=== PATIENT | female | born 1990 | race Caucasian/White ===

== ENCOUNTER 2019-03-07 23:42 | Inpatient (IN) ==
[2019-03-07] MEDS ORDERED: OXYTOCIN 30 UNITS/500 ML BAG IV PRN (23:57)
[2019-03-07] MEDS ORDERED: LACTATED RINGER'S 1,000 ML IV PRN (23:57)
--- NOTE | 2019-03-08 | History & Physical Report ---
Date of Service March 07, 2019 Primary 40 weeks presents with rupture of membranes at 1015 tonight. She is group B strep negative this is an uncomplicated she had initially been assessed for rupture of membranes a few hours ago but testing was negative then she felt a large gush and a pop and started to contract since then contractions are every 3-4 minutes and 6 out of 10 pain Testing is negative during her normal ultrasound Assessment & Plan (1) Normal labor and delivery: Admission History of Present Illness Primary Care Provider: NO PCP Allergies Allergy/AdvReac Type Severity Reaction Status Date / Time shellfish derived Allergy Nausea Verified 03/07/19 19:41 Home Medications Home Medications Medication Instructions Recorded Confirmed Type PNV cmb#95-ferrous fumarate-FA 1 tab PO DAILY 03/07/19 03/07/19 History [] ferrous sulfate [Iron (ferrous 325 mg PO 3XWK 03/07/19 03/07/19 History sulfate)] Patient History Medical History Palpitations Metoprolol PRN [place] teeth removed age 16 Family History Father Heart disease Social History Preferred Language: Slovenian marital status: Feels Safe at Home: Yes Smoking Status: Never smoker Hx Alcohol Use: No Hx Substance Use: No Physical Exam Physical Exam: Contractions every 3 minutes Chest exam clear Cardiac vascular exam normal rate and rhythm no audible murmur Abdominal exam gravid heart rate tones category 1 Cervix 3 cm 90% -1 membranes clearly ruptured
[2019-03-08 01:05] LABS: Hematocrit (blood only) 38.2 % (37-47); Hemoglobin 12.9 g/dL (12.0-16.0); Mean Corpuscular Volume 92.5 fL (80-100); Mean Platelet Volume 10.6 fL (7.4-10.4); Platelet Count 216 K/uL (130-400); RDW Coefficient of Variation 13.4 % (11.5-14.5); RDW Standard Deviation 45.4 fL (36.4-46.3); Red Blood Count 4.13 M/uL (4.2-5.4); White Blood Count 13.95 K/uL (4.8-10.8)
[2019-03-08 01:09] LABS: Mean Corpuscular Hgb Conc 33.8 g/dL (32-36)
[2019-03-08] MEDS ORDERED: BUPIVACAINE 0.25% 30 ML VIAL ONE (01:20)
[2019-03-08] MEDS ORDERED: ePHEDrine sulfate 50 MG/ML AMP ONE (01:20)
[2019-03-08] MEDS ORDERED: fentaNYL citrate 100 MCG/2 ML VIAL ONE (01:20)
[2019-03-08] MEDS ORDERED: fentaNYL 2MCG/ML ROPIV 1.25MG/ML 100 ML BAG EPI ONE (01:21)
--- NOTE | 2019-03-08 01:34 | Anesthesiology Consultation ---
Date of Service March 08, 2019 Assessment & Plan Chart Review Chart Review: Patient NOT seen in Pre Admission Testing and Acceptable Risk for Labor Epidural Consults Requested none ASA ASA2 Proposed Anesthesia Anesthesia Type: Labor Epidural Risk / Benefits Reviewed With: PT / POA / Parent / Guardian, Accepts Plan and Informed Consent Obtained NPO Date Last Intake of Fluids: 03/08/19 Time Last Intake of Fluids: 01:00 Date Last Intake of Solids: 03/07/19 Time Last Intake of Solids: 17:00 History Height/Weight Height: 1.68 m Weight: 72.348 kg Allergies Allergy/AdvReac Type Severity Reaction Status Date / Time shellfish derived Allergy Nausea Verified 03/07/19 19:41 Medications Home Medications Medication Instructions Recorded Confirmed Last Taken PNV cmb#95-ferrous fumarate-FA 1 tab PO DAILY 03/07/19 03/07/19 03/06/19 21:00 [] ferrous sulfate [Iron (ferrous 325 mg PO 3XWK 03/07/19 03/07/19 03/05/19 21:00 sulfate)] Active Medications Generic Name Dose Route Start Last Admin Trade Name Freq PRN Reason Stop Dose Admin Lactated Ringer's 1,000 mls @ 999 mls/hr 03/07/19 23:57 03/08/19 01:13 Lr IV 04/06/19 23:56 999 mls/hr .Q1H1M PRN Administration (Pre-Anesthesia) Past Medical History Medical History Palpitations Metoprolol PRN Has not had to take the metoprolol. [place] teeth removed age 16 Past Family History Family History Father Heart disease Past Surgical History Surgical History Hx of dilation and curettage 2016 Past Anesthesia History No Hx of Anesthesia Complications and No Family Hx of Anesthesia Complications History of PONV No Motion Sickness Screening History of Motion Sickness: No Social History Smoking Status: Never smoker Do You Dip or Chew Tobacco: No Hx Alcohol Use: No Hx Substance Use: No Exercise / Class Metabolic Activity II 4-5 Yardwork/Stairs/Walk up hill Physical Exam Vital Signs Last Vital Signs Temp 36.6 C 03/08/19 00:03 Pulse 96 H 03/08/19 01:33 Resp 20 03/08/19 00:03 BP 128/75 03/08/19 01:19 Pulse Ox 98 03/08/19 01:33 ENMT Mouth: no TMJ abnormality and no TMJ clicking Thyromental Distance: > or= 3.5 Finger Breadths Mallampati Class: II Neck normal visual inspection; neck extension not limited Respiratory Auscultation: lungs clear to auscultation bilaterally Cardiovascular Rate/Rhythm: regular rate and regular rhythm Heart Sounds: no murmur Psychiatric Orientation: alert and oriented x 3 Testing Laboratory Results 03/08/19 00:06
[2019-03-08] MEDS ORDERED: NALOXONE HCL 1 MG in SODIUM CHLORIDE 0.9% 1000ML 1,000 ML IV PRN (02:06)
[2019-03-08] MEDS ORDERED: ONDANSETRON INJ 2 MG/ML 2 ML VIAL IV PRN (02:06)
[2019-03-08] MEDS ORDERED: NALBUPHINE HCL INJ 10 MG/ML AMP IV PRN (02:06)
[2019-03-08] MEDS ORDERED: PROMETHAZINE HCL 12.5 MG in SODIUM CHLORIDE 0.9% 50 ML IV PRN (02:06)
[2019-03-08] MEDS ORDERED: fentaNYL 2MCG/ML ROPIV 1.25MG/ML 100 ML BAG EPI PRN (02:06)
[2019-03-08] MEDS ORDERED: LACTATED RINGER'S 1,000 ML IV PRN (02:06)
[2019-03-08] MEDS ORDERED: NALOXONE HCL 0.4 MG/1 ML VIAL/CARP IV PRN (02:06)
[2019-03-08] MEDS ORDERED: ePHEDrine sulfate 50 MG/ML AMP IV PRN (02:06)
[2019-03-08] MEDS ORDERED: DiphenhydrAMINE HCL 50 MG/ML VIAL IV PRN (02:06)
[2019-03-08] MEDS: LACTATED RINGER'S 1,000 ML IV SCH ×2 (02:15→08:57)
--- NOTE | 2019-03-08 07:07 | Obstetrical Progress Note ---
Date of Service March 08, 2019 Patient is 9 cm 0 station she has progressed nicely from 3 cm she has epidural heart rate is category 1 Physical Exam Vital Signs (Past 24 Hours): Last Vital Signs Temp 37.0 C 03/08/19 06:10 Pulse 127 H 03/08/19 07:01 Resp 16 03/08/19 06:10 BP 112/63 03/08/19 07:00 Pulse Ox 97 03/08/19 07:01
--- NOTE | 2019-03-08 09:15 | Labor Progress Brief Note ---
Date of Service March 08, 2019 Subjective pressure with contractions, now pushing. Assessment & Plan (1) Normal labor and delivery: Begin second stage. anticipate . fetus reassuring, category 2. Physical Exam Vital Signs (Past 24 Hours): Last Vital Signs Temp 37.0 C 03/08/19 06:10 Pulse 108 H 03/08/19 09:13 Resp 16 03/08/19 06:10 BP 149/52 H 03/08/19 09:13 Pulse Ox 97 03/08/19 09:11 Constitutional: WD/WN, vitals as above Genitourinary: cx--c/c/+1-2 toco--q2-3min efm--130s with mod variability, accels present, variables with pushing
--- NOTE | 2019-03-08 10:25 | Labor Progress Brief Note ---
Date of Service March 08, 2019 Subjective Pushing with good effort Assessment & Plan (1) Normal labor and delivery: Pushing with good effort for about 1 hr 15 min. Fetus reassuring. Continue and anticipate . Physical Exam Vital Signs (Past 24 Hours): Last Vital Signs Temp 37.5 C 03/08/19 09:30 Pulse 111 H 03/08/19 10:21 Resp 16 03/08/19 06:10 BP 120/58 L 03/08/19 09:58 Pulse Ox 96 03/08/19 10:21 Constitutional: WD/WN, vitals as above Genitourinary: cx--c/c/+2 toco--q2-3 min efm--150s with mod variability, variables with contractions
[2019-03-08] MEDS ORDERED: ACETAMINOPHEN 325 MG TAB PO PRN (12:24)
[2019-03-08] MEDS ORDERED: OXYCODONE/ACETAMINOPHEN 5mg/325mg TAB PO PRN (12:24)
--- NOTE | 2019-03-08 13:08 | Anesthesia Procedure Note ---
Date of Service March 08, 2019 Anesthesia Post Epidural Note Vital Signs Vital Signs: Temp Pulse Resp BP Pulse Ox 37.5 C 100 H 20 135/69 100 03/08/19 09:30 03/08/19 12:44 03/08/19 12:44 03/08/19 12:44 03/08/19 12:21 Pain Intensity Lower Perineal: Pain Intensity: 0 Notes Mental Status: alert / awake / arousable and participated in evaluation Nausea / Vomiting: adequately controlled Pain: adequately controlled Airway Patency, RR, SpO2: stable & adequate BP & HR: stable & adequate Hydration State: stable & adequate Neuraxial Anesthesia: was administered and sensory block is resolving Anesthetic Complications: no major complications apparent and Pt Satisfied with anesthetic care Epidural: Removed without complications and With tip intact
[2019-03-08] MEDS ORDERED: BENZOCAINE 20% AER SPR 82.5 GM CAN EXT PRN (13:24)
[2019-03-08] MEDS ORDERED: OXYTOCIN 30 UNITS/500 ML BAG IV PRN (13:24)
[2019-03-08] MEDS ORDERED: SUPERCREAM 0.870% 15 GM JAR EXT PRN (13:24)
[2019-03-08] MEDS ORDERED: DIPHTHERIA/TETANUS/PERTUSSIS 0.5 ML SYR/VIAL IM ONE (13:24)
[2019-03-08] MEDS ORDERED: HYDROCORTISONE ACETATE 25 MG SUPP PR PRN (13:24)
[2019-03-08] MEDS ORDERED: BENZOCAINE 20% AER SPR 82.5 GM CAN EXT ONE (14:11)
--- NOTE | 2019-03-08 15:37 | Delivery Summary ---
DATE OF OPERATION: 03/08/2019 PREOPERATIVE DIAGNOSES: 1. Intrauterine at 40 and 2/7 weeks. 2. Active labor. POSTOPERATIVE DIAGNOSES: 1. Intrauterine at 40 and 2/7 weeks. 2. Active labor. PROCEDURES: 1. Epidural anesthesia. 2. Normal spontaneous vaginal delivery. 3. Second-degree perineal laceration with repair. SURGEON: Vania Sprague MD ANESTHESIA: Epidural. ESTIMATED BLOOD LOSS: 475 mL. DESCRIPTION OF PROCEDURE: The patient presented to labor and delivery in active labor. She was admitted with ruptured membranes. Her cervix was 3, 90, and -1. She was admitted and expectantly managed. She underwent an epidural anesthetic and progressed to 9 and 0 station with a category 1 strip. This is when I took over for the patient in the morning. She did eventually become complete-complete and +1 to +2 station. The patient pushed for 3 hours to deliver a viable male in JORGE L presentation. The nose and mouth were bulb suctioned. There was no nuchal cord. The rest of the was then delivered without difficulty. The was placed on maternal abdomen where the nose and mouth were bulb suctioned again. There was immediate cry upon delivery. Cord was clamped and cut at 1 minute of life. Cord blood and segment was obtained. The placenta was manually extracted secondary to heavy bleeding. Hemostasis was obtained of the uterus with dilute Pitocin and fundal massage. A complicated second-degree perineal laceration was identified. Rectal exam showed the rectal sphincter was intact. This was repaired. It was a stellate vaginal part of the second-degree laceration, repair started on the right coming to the introitus, then on the left, coming into the introitus, then a separate suture was used on the perineal body to reapproximate it to close the perineum. Cervix, sulci, and rectum were examined and found to be intact. Estimated blood loss was 475 mL. Apgars were 8 and 9. Mother and baby doing well at the end of the delivery. I attest to the content of the Intraoperative Record and any orders documented therein. Any exception s are noted below.
[2019-03-08] MEDS: DOCUSATE SODIUM 100 MG CAP PO SCH (19:53)
[2019-03-08] MEDS: IBUPROFEN 600 MG TAB PO PRN (19:54)
[2019-03-09] MEDS: IBUPROFEN 600 MG TAB PO PRN ×4 (02:59→21:09)
[2019-03-09 06:13] LABS: Hematocrit (blood only) 30.2 % (37-47); Hemoglobin 10.1 g/dL (12.0-16.0)
--- NOTE | 2019-03-09 06:56 | Obstetrical Progress Note ---
Date of Service <Sriram Meza DO - Last Filed: 03/09/19 06:56> March 09, 2019 Assessment & Plan <Sriram Meza DO - Last Filed: 03/09/19 06:56> (1) Spontaneous vaginal delivery: 28 y/o, , at 40.2 weeks, A+, GBS(-) - continue routine post- care, encourage and ambulation. (2) Normal labor and delivery: Subjective <Sriram Meza - Last Filed: 03/09/19 06:56> Ambulation: ambulating normally Voiding: no voiding problems Passing Gas:: Yes Diet Tolerance:: regular diet Lochia:: Small Feeding Type:: breast feeding Mary states she is doing well this morning, no acute events overnight. She denies fever, chills, shortness of breath, chest pain, nausea, vomiting. Physical Exam <Sriram Meza - Last Filed: 03/09/19 06:56> Vital Signs (Past 24 Hours) Last Vital Signs Temp 36.5 C 03/09/19 03:00 Pulse 81 03/09/19 03:00 Resp 18 03/09/19 03:00 BP 102/59 L 03/09/19 03:00 Pulse Ox 97 03/08/19 23:15 Constitutional WD/WN, vitals as above cooperative and comfortable Eyes + anicteric sclerae and EOM intact bilaterally Neck normal visual inspection and trachea midline Respiratory normal respiratory effort, lungs clear to auscultation Cardiovascular RRR, no murmur, no edema Gastrointestinal (Abdomen) Percussion/Palpation: abdomen nontender uterine fundus is non-tender, firm, 2cm inferior to umbilicus Musculoskeletal Head/Neck/Chest: normocephalic and head atraumatic Skin no rashes, warm and dry Neurologic moves all extremities and awake Psychiatric A+Ox3, euthymic affect Results & Data <Sriram Meza - Last Filed: 03/09/19 06:56> Laboratory Results Laboratory Results - last 24 hr 03/09/19 05:48 Hgb 10.1 L Hct 30.2 L Medications Administered Benzocaine (Dermoplast Pain Relieving [place]) 1 appln EXT PRN PRN PRN Reason: Perineal Discomfort Stop: 04/07/19 13:23 Last Admin: 03/08/19 19:54 Dose: 82.5 appln Documented by: [id number] Cocaine HCl (Supercream 0.870%) 1 gm EXT BID PRN PRN Reason: Hemorrhoidal Inflammation Stop: 03/22/19 13:23 Last Admin: 03/08/19 19:53 Dose: 1 appln Documented by: [id number] Docusate Sodium (Colace) 100 mg PO BID NOAH Stop: 04/07/19 20:59 Last Admin: 03/08/19 19:53 Dose: 100 mg Documented by: [id number] Ibuprofen (Motrin) 600 mg PO Q4H PRN PRN Reason: Pain/HARDY/Cramping/Fever Stop: 04/07/19 12:23 Last Admin: 03/09/19 02:59 Dose: 600 mg Documented by: [id number] Admin: 03/08/19 19:54 Dose: 600 mg Documented by: [id number] <Vania Sprague MD, FACOG - Last Filed: 03/09/19 08:00> Co-Signing Physician Notes Resident Physician Supervision Note: I interviewed and examined the patient. Discussed with Dr. Meza and agree with findings and plan as documented in the note. Any exceptions or clarifications are listed here: Doing well. Routine PP care. Documented By: Vania Sprague MD, FACOG
[2019-03-09] MEDS: DOCUSATE SODIUM 100 MG CAP PO SCH ×2 (08:43→21:08)
[2019-03-09] MEDS: PRENATAL VITAMIN 1 TAB PO SCH (08:43)
[2019-03-09] MEDS ORDERED: BISACODYL 5 MG TABEC PO SCH (20:00)
[2019-03-10] MEDS: IBUPROFEN 600 MG TAB PO PRN ×2 (05:47→09:38)
[2019-03-10] MEDS ORDERED: BISACODYL 10 MG SUPP PR PRN (06:00)
--- NOTE | 2019-03-10 07:01 | Obstetrical Progress Note ---
Date of Service <Sriram Meza DO - Last Filed: 03/10/19 07:13> March 10, 2019 Assessment & Plan <Sriram Meza DO - Last Filed: 03/10/19 07:13> (1) Spontaneous vaginal delivery: 28 y/o, , at 40.2 weeks, A+, GBS(-) - continue routine post- care, encourage and ambulation. - discharge instructions reviewed at bedside Subjective <Sriram Meza DO - Last Filed: 03/10/19 07:13> Ambulation: ambulating normally Voiding: no voiding problems Passing Gas:: Yes Diet Tolerance:: regular diet Lochia:: Small Feeding Type:: breast feeding Mary states she is doing well this morning, no acute events overnight. She denies fever, chills, chest pain, shortness of breath, nausea, vomiting. She states she is ready for discharge home today. Physical Exam <Sriram Meza DO - Last Filed: 03/10/19 07:13> Vital Signs (Past 24 Hours) Last Vital Signs Temp 36.4 C L 03/10/19 00:15 Pulse 72 03/10/19 00:15 Resp 18 03/10/19 00:15 BP 107/70 03/10/19 00:15 Pulse Ox 97 03/08/19 23:15 Constitutional WD/WN, vitals as above cooperative and comfortable Eyes + anicteric sclerae and EOM intact bilaterally Neck normal visual inspection and trachea midline Respiratory normal respiratory effort, lungs clear to auscultation Cardiovascular RRR, no murmur, no edema Gastrointestinal (Abdomen) Percussion/Palpation: abdomen nontender uterine fundus is firm, non-tender, 3cm inferior to umbilicus Musculoskeletal Head/Neck/Chest: normocephalic and head atraumatic Skin no rashes, warm and dry Neurologic moves all extremities and awake Psychiatric A+Ox3, euthymic affect Results & Data <Sriram Meza DO - Last Filed: 03/10/19 07:13> Medications Administered Benzocaine (Dermoplast Pain Relieving [place]) 1 appln EXT PRN PRN PRN Reason: Perineal Discomfort Stop: 04/07/19 13:23 Last Admin: 03/08/19 19:54 Dose: 82.5 appln Documented by: [id number] Cocaine HCl (Supercream 0.870%) 1 gm EXT BID PRN PRN Reason: Hemorrhoidal Inflammation Stop: 03/22/19 13:23 Last Admin: 03/08/19 19:53 Dose: 1 appln Documented by: [id number] Docusate Sodium (Colace) 100 mg PO BID [facility] Stop: 04/07/19 20:59 Last Admin: 03/09/19 21:08 Dose: 100 mg Documented by: [id number] Admin: 03/09/19 08:43 Dose: 100 mg Documented by: [id number] Admin: 03/08/19 19:53 Dose: 100 mg Documented by: [id number] Ibuprofen (Motrin) 600 mg PO Q4H PRN PRN Reason: Pain/HARDY/Cramping/Fever Stop: 04/07/19 12:23 Last Admin: 03/10/19 05:47 Dose: 600 mg Documented by: [id number] Admin: 03/09/19 21:09 Dose: 600 mg Documented by: [id number] Admin: 03/09/19 13:49 Dose: 600 mg Documented by: [id number] Admin: 03/09/19 08:43 Dose: 600 mg Documented by: [id number] Admin: 03/09/19 02:59 Dose: 600 mg Documented by: [id number] Admin: 03/08/19 19:54 Dose: 600 mg Documented by: [id number] Prenat Multivit/[place]/Iron/Folic Ac ( Vitamin) 1 tab PO QAM [facility] Stop: 04/08/19 08:59 Last Admin: 03/09/19 08:43 Dose: 1 tab Documented by: [id number] <Archana Spaulding MD, FACOG - Last Filed: 03/10/19 07:32> Co-Signing Physician Notes Resident Physician Supervision Note: I interviewed and examined the patient. Discussed with Dr. Jumana Meza and agree with findings and plan as documented in the note. Any exceptions or clarifications are listed here: [None] Documented By: Archana Spaulding MD, FACOG
[2019-03-10] MEDS: PRENATAL VITAMIN 1 TAB PO SCH (08:44)
[2019-03-10] MEDS: DOCUSATE SODIUM 100 MG CAP PO SCH (08:44)
== END 2019-03-10 13:18 | disposition home or self-care (01) | DRG 807 ==
LOC: OPB 23:42 → 4S1 23:43 → 4S2 03-08 15:25

== ENCOUNTER 2023-05-04 07:30 | Inpatient (IN) ==
[2023-05-04] MEDS ORDERED: OXYTOCIN 30 UNITS/500 ML BAG IV PRN ×3 (07:43→17:01)
[2023-05-04] MEDS ORDERED: LIDOCAINE 1% LOCAL 20 ML VIAL INFIL PRN (07:43)
--- NOTE | 2023-05-04 08:11 | History & Physical Report ---
Date of Service May 04, 2023 Assessment & Plan (1) Encounter for induction of labor: (2) History of macrosomia in in prior , currently : Plan admit, iv, labs. plan pitocin induction and arom when able. epidural if desires. fhts categ 1. Admission and Anticipated Discharge Date Admission Date: May 04, 2023 History of Present Illness Chief Complaint: induction Primary Care Provider: Valeria PromiseShakira Borden 32yo at 40+wks presents with cc of planned induction, postdates. Denies rom, vb. +FM. No ctx. 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 prior LGA PNL rh pos, ri, gbs neg OBH: x 1, 9+#, sab x 1 GYNH: nl paps, no stds. Allergies Allergy/AdvReac Type Severity Reaction Status Date / Time shellfish derived Allergy Nausea Verified 05/01/23 09:41 Home Medications Medication Instructions Recorded Confirmed Type prenat.vits,дмитрий,mnv-satg-etmor 1 tab PO DAILY 09/10/22 05/04/23 History Patient History Medical History (Updated 05/04/23 @ 08:10 by Maria E Mukherjee MD, FACOG) Abnormal magnetic resonance angiography of brain Brain angiogram to get picture of brain 2007. History of chicken pox Surgical History Hx of dilation and curettage 2017 S/P cholecystectomy [place] teeth removed age 16 Family History Father Heart disease Denies family history of Ovarian cancer Prostate cancer Breast cancer Colorectal cancer Social History (Updated 09/10/22 @ 10:52 by Monica Hodges) Smoking Status: Never smoker Do You Dip or Chew Tobacco: No; Hx Alcohol Use: No Hx Substance Use: No Preferred Language: Cuban Communication Ability: Effective Concrete Sculptor Required: No Beliefs That Will Affect Care: None marital status: marital status details: Amarjit Robert (27) [phone] Current Living Situation: Spouse and Family Current Living Situation Comment: lives iwth spouse, child, no pets current occupational status: employed 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 Feels Safe at Home: Yes Assistive Devices: None Review of Systems as per Subjective / HPI Physical Exam Constitutional: WD/WN, vitals as above Respiratory: normal respiratory effort, lungs clear to auscultation Cardiovascular: Rate/Rhythm: regular rate and regular rhythm Gastrointestinal (Abdomen): soft gravid nt efw 8-9# Musculoskeletal: no edema nontender calves Neurologic: grossly normal Psychiatric: A+Ox3, euthymic affect Genitourinary: Manual OB Exam: + cervical dilation 3 cm, + cervical effacement 70% and + station -2 OB Exam Monitor Tracing: + external FHT monitor used, + external uterine monitor used (irreg), + category I and + normal FHT variability Results & Data Vital Signs (Past 12 Hours) Vital Signs Pulse BP 05/04/23 07:42 86 115/73 Coding Level of Care Code None Diagnoses Encounter for induction of labor Z34.90 History of macrosomia in infant in prior , currently O09.299
[2023-05-04] MEDS: LACTATED RINGER'S 1,000 ML IV PRN ×2 (08:35→14:56)
[2023-05-04 08:44] LABS: Hematocrit (blood only) 37.8 % (37.0-47.0); Hemoglobin 12.6 g/dl (12.0-16.0); Mean Corpuscular Hemoglobin 31.7 pg (25.0-34.0); Mean Corpuscular Hgb Conc 33.3 g/dL (32.0-36.0); Mean Corpuscular Volume 95.2 fL (80.0-100.0); Mean Platelet Volume 10.7 fL (9.4-12.4); Platelet Count 187 K/uL (130-400); RDW Coefficient of Variation 12.7 % (11.5-14.5); RDW Standard Deviation 44.5 fL (36.4-46.3); Red Blood Count 3.97 M/uL (4.20-5.40); White Blood Count 11.75 K/ul (4.8-10.8)
[2023-05-04] MEDS ORDERED: fentaNYL citrate PF 100 MCG/2 ML VIAL ONE (14:49)
[2023-05-04] MEDS ORDERED: ePHEDrine sulfate 50 MG/ML AMP ONE (14:49)
[2023-05-04] MEDS ORDERED: SODIUM CHLORIDE 0.9% PF INJ 10 ML VIAL ONE (14:49)
[2023-05-04] MEDS ORDERED: LIDOCAINE 2%/EPINEPHRINE 1:200,000 20 ML PF ONE (14:50)
[2023-05-04] MEDS ORDERED: BUPIVACAINE 0.25% PF 30 ML VIAL ONE (14:50)
[2023-05-04] MEDS ORDERED: fentaNYL 2MCG/ML ROPIVACAINE 1.25MG/ML 100 ML BAG EPI ONE (14:50)
[2023-05-04] MEDS ORDERED: fentaNYL citrate PF 100 MCG/2 ML VIAL EPI PRN (15:40)
[2023-05-04] MEDS ORDERED: PROMETHAZINE HCL 6.25 MG in SODIUM CHLORIDE 0.9% 50 ML IV PRN (15:40)
[2023-05-04] MEDS ORDERED: ePHEDrine sulfate 50 MG/ML AMP IV PRN (15:40)
[2023-05-04] MEDS ORDERED: ONDANSETRON INJ 2 MG/ML 2 ML VIAL IV PRN (15:40)
[2023-05-04] MEDS ORDERED: LIDOCAINE 2%/EPINEPHRINE 1:200,000 20 ML PF EPI STA (15:40)
[2023-05-04] MEDS ORDERED: BUPIVACAINE 0.25% PF 30 ML VIAL EPI PRN (15:40)
[2023-05-04] MEDS ORDERED: NALOXONE HCL 1 MG in SODIUM CHLORIDE 0.9% 1000ML 1,000 ML IV PRN (15:40)
[2023-05-04] MEDS ORDERED: ROPIVACAINE 0.5% PF 5 MG/ML 20 ML VIAL EPI PRN (15:40)
[2023-05-04] MEDS ORDERED: fentaNYL 2MCG/ML ROPIVACAINE 1.25MG/ML 100 ML BAG EPI PRN (15:40)
[2023-05-04] MEDS ORDERED: diphenhydrAMINE 50 MG/ML VIAL IV PRN (15:40)
[2023-05-04] MEDS ORDERED: SODIUM CHLORIDE 0.9% PF INJ 10 ML VIAL EPI STA (15:40)
[2023-05-04] MEDS ORDERED: NALBUPHINE HCL INJ 10 MG/ML AMP IV PRN (15:40)
[2023-05-04] MEDS ORDERED: LIDOCAINE 2% MPF LOCAL 5 ML VIAL EPI PRN (15:40)
[2023-05-04] MEDS ORDERED: SODIUM CHLORIDE 0.9% PF INJ 10 ML VIAL EPI PRN (15:40)
[2023-05-04] MEDS ORDERED: fentaNYL citrate PF 100 MCG/2 ML VIAL EPI STA (15:40)
[2023-05-04] MEDS ORDERED: NALOXONE HCL 0.4 MG/1 ML VIAL/CARP IV PRN (15:40)
[2023-05-04] MEDS ORDERED: BUPIVACAINE 0.25% PF 30 ML VIAL EPI STA (15:40)
--- NOTE | 2023-05-04 15:40 | Anesthesiology Consultation ---
Date of Service May 04, 2023 Assessment & Plan Chart Review Chart Review: Patient NOT seen in Pre Admission Testing and Acceptable Risk for Labor Epidural Consults Requested none ASA ASA2 Proposed Anesthesia Anesthesia Type: Labor Epidural Risk / Benefits Reviewed With: PT / POA / Parent / Guardian, Accepts Plan and Informed Consent Obtained History Height/Weight Height: 5 ft 6 in Weight: 73.457 kg Allergies Allergy/AdvReac Type Severity Reaction Status Date / Time shellfish derived Allergy Nausea Verified 05/01/23 09:41 Medications Home Medications Medication Instructions Recorded Confirmed Last Taken prenat.vits,дмитрий,toc-dahe-yhucb 1 tab PO DAILY 09/10/22 05/04/23 05/03/23 21:00 Active Medications Generic Name Dose Route Start Last Admin Trade Name Freq PRN Reason Stop Dose Admin Oxytocin 30 units in 500 mls @ 15 mls/hr 05/04/23 07:43 05/04/23 13:45 Pitocin IV 05/06/23 07:42 0.9 units/hr .Q24H PRN 15 mls/hr Labor Induction/Augmentation Titration Protocol 0.9 UNITS/HR Lactated Ringer's 1,000 mls @ 125 mls/hr 05/04/23 07:43 05/04/23 14:56 Lr IV 05/06/23 07:42 999 mls/hr .Q8H PRN Administration L&D Protocol Protocol Past Medical History Medical History (Updated 05/04/23 @ 08:10 by Maria E Mukherjee MD, FACOG) Abnormal magnetic resonance angiography of brain Brain angiogram to get picture of brain 2007. History of chicken pox Exercise / Class Metabolic Activity II 4-5 Yardwork/Stairs/Walk up hill Past Family History Family History Father Heart disease Denies family history of Ovarian cancer Prostate cancer Breast cancer Colorectal cancer Past Surgical History Surgical History Hx of dilation and curettage 2017 S/P cholecystectomy [place] teeth removed age 16 Past Anesthesia History No Hx of Anesthesia Complications and No Family Hx of Anesthesia Complications History of PONV No Hx of PONV and No Hx of Motion Sickness Social History Smoking Status: Never smoker Do You Dip or Chew Tobacco: No Hx Alcohol Use: No Hx Substance Use: No substance use type: does not use Physical Exam Vital Signs Last Vital Signs Temp 36.7 C 05/04/23 07:41 Pulse 65 05/04/23 15:38 Resp 18 05/04/23 08:00 BP 120/71 05/04/23 15:38 Pulse Ox 97 05/04/23 15:37 ENMT Mouth: no dentition abnormality Thyromental Distance: > or= 3.5 Finger Breadths Mallampati Class: II Neck normal visual inspection Respiratory normal respiratory effort Auscultation: lungs clear to auscultation bilaterally Cardiovascular Rate/Rhythm: regular rate and regular rhythm Psychiatric Orientation: alert Testing Laboratory Results 05/04/23 08:07
[2023-05-04] MEDS ORDERED: NURSING L&D Epidural Breakthrough Pain Update ONE (15:52)
[2023-05-04] MEDS ORDERED: DIPHTHERIA/TETANUS/PERTUSSIS Vaccine (Tdap, Age 7+yrs) 0.5mL SYR/VL IM ONE (17:01)
[2023-05-04] MEDS ORDERED: bisacodyL 10 MG SUPP PR PRN (17:01)
[2023-05-04] MEDS ORDERED: BENZOCAINE 20% AER SPR 82.5 GM CAN EXT PRN (17:01)
[2023-05-04] MEDS ORDERED: HYDROCORTISONE ACETATE 25 MG SUPP PR PRN (17:01)
[2023-05-04] MEDS ORDERED: ACETAMINOPHEN 325 MG TAB PO PRN (17:01)
--- NOTE | 2023-05-04 17:04 | Delivery Summary ---
Vaginal Delivery Summary Date of Service May 04, 2023 Vaginal Delivery Summary and 2nd Degree LAC PREOPERATIVE DIAGNOSIS: 1. Single intrauterine at 40 6/7 wga 2. right club food POSTOPERATIVE DIAGNOSIS: 1. Single intrauterine at 40 6/7 wga 2. right club food 3. Delivered PROCEDURE: 1. Normal spontaneous vaginal delivery. SURGEON: Laney Hoover MD ANESTHESIA: Epidural. ESTIMATED BLOOD LOSS: 300 mL FLUIDS: Continuous LR. URINE OUTPUT: None. COMPLICATIONS: None. CONDITION: Stable. INDICATIONS: 32 yo at 40 6/7 presented for post-dates IOL. She was started on pitocin. She received an epidural for pain control and shortly after underwent SROM. Shortly after SROM she continued to have pain, was checked and found to be complete and desiring to push. FINDINGS: A viable male , weight pending with Apgars of 8 and 9 at 1 and 5 minutes respectively. SPECIMEN: Cord blood OPERATIVE REPORT: The patient progressed to 10 cm, 100% effaced and +2 station, pushed over intact perineum with anesthesia to deliver a viable male infant, weight and Apgars as above. Head of delivered in JORGE L position. No nuchal cord was present. Body and shoulders were delivered without difficulty. was delivered to maternal abdomen and nursing staff. Delayed cord clamping was performed for 60 seconds. Cord was clamped and cut. Cord blood was obtained. Placenta delivered spontaneously intact with 3-vessel cord. IV oxytocin and fundal massage were given for excellent hemostasis. Vagina, cervix, perineum, and placenta were inspected. A second degree laceration was noted and repaired in the usual fashion with 3-0 vicryl. An additional area on the pt's right vaginal wall was noted to be bleeding and made hemostatic with a figure of eight stitch. There was good hemostasis. Sponge and needle counts correct x2. No spon ges were left behind. Mother and stable in immediate period. [facility] Vaginal Delivery Charge Vaginal Delivery Codes: 30921 global code for the antepartum, delivery, and post- Delivery Type Details: and 2nd Degree LAC
--- NOTE | 2023-05-04 17:15 | Anesthesia Procedure Note ---
Date of Service May 04, 2023 Anesthesia Post Epidural Note Vital Signs Vital Signs: Temp Pulse Resp BP Pulse Ox 36.7 C 83 18 120/64 99 05/04/23 07:41 05/04/23 17:07 05/04/23 08:00 05/04/23 17:05 05/04/23 17:07 Pain Intensity Left Hip: Pain Intensity: 10 Notes Mental Status: alert / awake / arousable Nausea / Vomiting: adequately controlled Pain: adequately controlled Airway Patency, RR, SpO2: stable & adequate BP & HR: stable & adequate Hydration State: stable & adequate Neuraxial Anesthesia: was administered and sensory block is resolving Anesthetic Complications: no major complications apparent and Pt Satisfied with anesthetic care Epidural: Removed without complications and With tip intact
[2023-05-04] MEDS: DOCUSATE SODIUM 100 MG CAP PO SCH (21:39)
[2023-05-04] MEDS: IBUPROFEN 600 MG TAB PO PRN (21:40)
[2023-05-05 06:31] LABS: Hematocrit (blood only) 33.1 % (37.0-47.0); Hemoglobin 11.1 g/dl (12.0-16.0); Mean Corpuscular Hemoglobin 31.6 pg (25.0-34.0); Mean Corpuscular Hgb Conc 33.5 g/dL (32.0-36.0); Mean Corpuscular Volume 94.3 fL (80.0-100.0); Mean Platelet Volume 10.7 fL (9.4-12.4); Platelet Count 169 K/uL (130-400); RDW Coefficient of Variation 12.8 % (11.5-14.5); RDW Standard Deviation 44.1 fL (36.4-46.3); Red Blood Count 3.51 M/uL (4.20-5.40); White Blood Count 18.58 K/ul (4.8-10.8)
--- NOTE | 2023-05-05 06:49 | Obstetrical Progress Note ---
Date of Service <Per Fox - Last Filed: 05/05/23 06:49> May 05, 2023 Assessment & Plan <Per Fox - Last Filed: 05/05/23 06:49> (1) Vaginal delivery: Plan - Feels well today. Eating well, voiding well, ambulating well. - Pain well controlled with ibuprofen 600mg Q4H PRN - Routine care -- OOB, ambulation, diet progression as tolerated - After discharge will have 6 week follow-up with Dr. Hoover Day #:: 1 <Laney Hoover MD - Last Filed: 05/05/23 06:53> (1) Vaginal delivery: Subjective <Per Fox - Last Filed: 05/05/23 06:49> Ambulation: ambulating normally Voiding: no voiding problems Passing Gas:: Yes Diet Tolerance:: regular diet Lochia:: Small Feeding Type:: bottle feeding Current Pain Level(1-10): 4 Review of Systems Denies fever, chills, sweats Denies shortness of breath, difficulty breathing, chest pain, palpitations, chest pressure. Denies breast pain. Denies dysuria. Denies headache or changes in vision. Physical Exam <Per Fox - Last Filed: 05/05/23 06:49> General: Alert, oriented. No acute distress. Cardiac: Regular rate and rhythm, no murmurs/rubs/gallops. Respiratory: Clear to auscultation bilaterally a/p, no wheezes/rales/rhonchi. No increased work of breathing. Symmetrical chest rise. No respiratory distress. Abdomen: Soft, nontender, nondistended. Bowel sounds present. Uterus: Uterine fundus firm, palpable 1 cm below umbilicus. Lower Extremities: No lower extremity edema or swelling. No deep calf pain. Betsy's negative bilaterally. Results & Data <Per Fox - Last Filed: 05/05/23 06:49> Vital Signs (Past 12 Hours) Vital Signs Temp Pulse Resp BP Pulse Ox O2 Del Method 05/05/23 04:45 36.5 C 76 16 106/69 98 Room Air 05/04/23 23:00 36.7 C 76 16 123/75 96 Room Air 05/04/23 20:00 36.6 C 90 16 117/79 97 Room Air <Laney Hoover MD - Last Filed: 05/05/23 06:53> Co-Signing Physician Notes Resident Physician Supervision Note: I interviewed and examined the patient. Discussed with Dr. Fox and agree with findings and plan as documented in the note. Any exceptions or clarifications are listed here: 32 yo PP1 s/p , doing well. VSS, exam benign and wnl. Desires dc at 24 hrs, ok to do so Documented By: Laney Hoover MD Resident Activity Tracking <Per Fox DO - Last Filed: 05/05/23 06:49> Resident Involvement: Resident Care Provided Care Provided: OB Delivery
[2023-05-05] MEDS: IBUPROFEN 600 MG TAB PO PRN (07:47)
[2023-05-05] MEDS: DOCUSATE SODIUM 100 MG CAP PO SCH (07:47)
[2023-05-05] MEDS ORDERED: PRENATAL VITAMIN 1 TAB PO SCH (08:00)
[2023-05-05] MEDS ORDERED: bisacodyL 5 MG TABEC PO SCH (20:00)
== END 2023-05-05 17:46 | disposition home or self-care (01) | DRG 807 ==
LOC: 4S1 07:30 → 4E2 19:16

== ENCOUNTER 2025-02-08 07:27 | Inpatient (IN) ==
[2025-02-08] MEDS ORDERED: OXYTOCIN 30 UNITS/NSS 30 UNITS/500 ML BAG IV PRN ×2 (08:27→15:23)
[2025-02-08] MEDS ORDERED: LIDOCAINE 1% LOCAL 20 ML VIAL INFIL PRN (08:27)
[2025-02-08] MEDS ORDERED: ACETAMINOPHEN 325 MG TAB PO PRN ×2 (08:27→15:23)
[2025-02-08] MEDS ORDERED: CALCIUM CARBONATE 500 MG CHEWABLE TAB PO PRN (08:27)
[2025-02-08] MEDS: LACTATED RINGER'S 1,000 ML IV PRN (08:35)
[2025-02-08 09:10] LABS: Hematocrit (blood only) 35.1 % (37.0-47.0); Hemoglobin 11.7 g/dl (12.0-16.0); Mean Corpuscular Hemoglobin 30.9 pg (25.0-34.0); Mean Corpuscular Hgb Conc 33.3 g/dL (32.0-36.0); Mean Corpuscular Volume 92.6 fL (80.0-100.0); Mean Platelet Volume 10.7 fL (9.4-12.4); Platelet Count 156 K/uL (130-400); RDW Standard Deviation 47.7 fL (36.4-46.3); Red Blood Count 3.79 M/uL (4.20-5.40); White Blood Count 8.78 K/ul (4.8-10.8)
[2025-02-08] MEDS: OXYTOCIN 30 UNITS/NSS 30 UNITS/500 ML BAG IV PRN (09:13)
[2025-02-08] MEDS ORDERED: SODIUM CHLORIDE 0.9% PF INJ 10 ML VIAL EPI STA (12:17)
[2025-02-08] MEDS ORDERED: ePHEDrine sulfate 50 MG/ML AMP IV PRN (12:17)
[2025-02-08] MEDS ORDERED: BUPIVACAINE 0.25% PF 30 ML VIAL EPI PRN (12:17)
[2025-02-08] MEDS ORDERED: SODIUM CHLORIDE 0.9% PF INJ 10 ML VIAL EPI PRN (12:17)
[2025-02-08] MEDS ORDERED: LIDOCAINE 2% MPF LOCAL 5 ML VIAL EPI PRN (12:17)
[2025-02-08] MEDS ORDERED: diphenhydrAMINE 50 MG/ML VIAL IV PRN (12:17)
[2025-02-08] MEDS ORDERED: NALBUPHINE HCL INJ 10 MG/ML AMP IV PRN (12:17)
[2025-02-08] MEDS ORDERED: ROPIVACAINE 0.5% PF 5 MG/ML 20 ML VIAL EPI PRN (12:17)
[2025-02-08] MEDS ORDERED: BUPIVACAINE 0.25% PF 30 ML VIAL EPI STA (12:17)
[2025-02-08] MEDS ORDERED: fentANYL 2 MCG/ML BUPIVacaine 0.125%-NSS 100ML BAG EPI PRN (12:17)
[2025-02-08] MEDS ORDERED: NALOXONE HCL 0.4 MG/1 ML VIAL/CARP IV PRN (12:17)
[2025-02-08] MEDS ORDERED: LIDOCAINE 2%/EPINEPHRINE 1:200,000 20 ML PF EPI STA (12:17)
[2025-02-08] MEDS ORDERED: NALOXONE HCL 1 MG in SODIUM CHLORIDE 0.9% 1,000 ML IV PRN (12:17)
[2025-02-08] MEDS ORDERED: fentaNYL citrate PF 100 MCG/2 ML VIAL EPI PRN (12:17)
[2025-02-08] MEDS ORDERED: ONDANSETRON INJ 2 MG/ML 2 ML VIAL IV PRN (12:17)
[2025-02-08] MEDS ORDERED: fentaNYL citrate PF 100 MCG/2 ML VIAL EPI STA (12:17)
--- NOTE | 2025-02-08 12:18 | Anesthesiology Consultation ---
Date of Service February 08, 2025 Assessment & Plan (1) Encounter for pre-operative examination: Chart Review Chart Review: Patient NOT seen in Pre Admission Testing and Acceptable Risk for Labor Epidural Consults Requested none History Height/Weight Height: 5 ft 6 in Weight: 72.575 kg Allergies Allergy/AdvReac Type Severity Reaction Status Date / Time shellfish derived Allergy Nausea Verified 02/07/25 10:53 Medications Home Medications Medication Instructions Recorded Confirmed Last Taken 21-iron fu-folic acid PO 06/08/24 02/07/25 Unknown [ Complete] ferrous sulfate PO 12/15/24 02/07/25 Unknown Active Medications Generic Name Dose Route Start Last Admin Trade Name Freq PRN Reason Stop Dose Admin Lactated Ringer's 1,000 mls @ 125 mls/hr 02/08/25 08:27 02/08/25 12:29 Lr IV 02/09/25 08:26 999 mls/hr .Q8H PRN Administration L&D Protocol Protocol Oxytocin 30 units in 500 mls @ 12 mls/hr 02/08/25 08:27 02/08/25 12:05 Pitocin 30 Units/Nss IV 02/10/25 08:26 0.72 units/hr .Q24H PRN 12 mls/hr Labor Induction/Augmentation Titration Protocol 0.72 UNITS/HR Past Medical History Medical History (Updated 02/08/25 @ 12:18 by Akshat Cm MD) Encounter for pre-operative examination Vaginal delivery Abnormal magnetic resonance angiography of brain Brain angiogram to get picture of brain 2008. History of macrosomia in infant in prior , currently History of chicken pox Exercise / Class Metabolic Activity II 4-5 Yardwork/Stairs/Walk up hill Past Family History Family History Father Heart disease Son Club foot Denies family history of Ovarian cancer Prostate cancer Breast cancer Colorectal cancer Past Surgical History Surgical History S/P cholecystectomy Hx of dilation and curettage 2017 [place] teeth removed age 16 Social History Smoking Status: Never smoker Do You Dip or Chew Tobacco: No Hx Alcohol Use: No Hx Substance Use: No substance use type: does not use Physical Exam Vital Signs Last Vital Signs Temp 36.7 C 02/08/25 12:05 Pulse 70 02/08/25 12:41 Resp 16 02/08/25 07:41 BP 107/60 02/08/25 12:41 Pulse Ox 100 02/08/25 12:37 Testing Laboratory Results 02/08/25 08:50
[2025-02-08] MEDS: LIDOCAINE 2%/EPINEPHRINE 1:200,000 20 ML PF ONE (12:41)
[2025-02-08] MEDS: BUPIVACAINE 0.25% PF 30 ML VIAL ONE (12:41)
[2025-02-08] MEDS: fentANYL 2 MCG/ML BUPIVacaine 0.125%-NSS 100ML BAG ONE (12:41)
[2025-02-08] MEDS: fentaNYL citrate PF 100 MCG/2 ML VIAL ONE (12:41)
[2025-02-08] MEDS: ePHEDrine sulfate 50 MG/ML AMP ONE (12:53)
[2025-02-08] MEDS: SODIUM CHLORIDE 0.9% PF INJ 10 ML VIAL ONE (12:53)
--- NOTE | 2025-02-08 13:26 | History & Physical Report ---
"Date of Service February 08, 2025 Assessment & Plan (1) Encounter for induction of labor: Plan: Mary is a 34yo at 40w3d admitted for IOL. Continue Pit Epidural given by anesthesia AROM at 13:20 on 02/08/25 Hgb 11.7, asymptomatic Continue monitoring tracing, currently Category 1 Admission and Anticipated Discharge Date Admission Date: February 08, 2025 History of Present Illness Chief Complaint: IOL Primary Care Provider: Valeria Borden Mary is a 34yo at 40w3d admitted for IOL. Currently feeling well, not in acute distress. Denies any significant complications this . Endorses baby moving regularly, feeling more consistent contractions. Denies any significant vaginal bleeding or discharge throughout . Denies any significant abdominal pain or trauma during . Denies any recent fever, body aches, chills, headaches, vision changes, SOB, chest pain, nausea/vomiting/diarrhea, LE pain/numbness/tingling. GBS-, Rh+, T. pallidum negative. Allergies Allergy/AdvReac Type Severity Reaction Status Date / Time shellfish derived Allergy Nausea Verified 02/07/25 10:53 Home Medications Medication Instructions Recorded Confirmed Type 21-iron fu-folic acid PO 06/08/24 02/07/25 History [ Complete] ferrous sulfate PO 12/15/24 02/07/25 History Patient History Medical History (Updated 02/08/25 @ 13:26 by Akash Scott DO) Encounter for pre-operative examination Vaginal delivery Abnormal magnetic resonance angiography of brain Brain angiogram to get picture of brain 2007. History of macrosomia in in prior , currently History of chicken pox Surgical History S/P cholecystectomy Hx of dilation and curettage 2017 [place] teeth removed age 16 Family History Father Heart disease Son Club foot Denies family history of Ovarian cancer Prostate cancer Breast cancer Colorectal cancer Social History (Updated 06/08/24 @ 13:04 by Monica Hodges) Smoking Status: Never smoker Second Hand Exposure: No; Do You Dip or Chew Tobacco: No; Tobacco Cessation Education Requested by Patient: No Hx Alcohol Use: No Hx Substance Use: No Preferred Language: Moldovan Communication Ability: Effective Cushion Maker Hand Required: No Beliefs That Will Affect Care: None marital status: marital status details: Amarjit Robert (28) [phone] Current Living Situation: Spouse Current Living Situation Comment: , 2 boys current occupational status: employed current occupation: [employer] Other Information That Helps Us Care for You: No Feels Safe at Home: Yes Safety Concerns: Feels Safe At This Time Assistive Devices: Glasses Physical Exam Physical Exam: Gen: A&Ox3, appearing nontoxic in no acute distress HEENT: EOM intact, moist mucus membranes CV: RRR, +s1/s2, no m/r/g Resp: clear to auscultation b/l, good equal air entry, no wheeze/rales/rhonchi GI/abd: gravid, +BS, nontender to palpation, pads in place Cervical: 6 | 90 | -1, est weight 8-9lbs LE: no significant edema, calves nontender to palpation b/l Neuro: speech intact, no facial droop, wiggles toes on command Psych: euthymic, mood-affect congruence, normal speech rate and tone FHR: 140 baseline, moderate variability, accels present, decels absent Results & Data Vital Signs (Past 12 Hours) Vital Signs Temp Pulse Resp BP Pulse Ox 02/08/25 13:22 65 99 02/08/25 13:21 74 123/66 02/08/25 13:20 36.7 C 02/08/25 13:17 71 98 02/08/25 13:16 64 151/70 H 02/08/25 13:12 79 99 02/08/25 13:11 86 117/72 02/08/25 13:07 73 96 02/08/25 13:06 71 109/66 02/08/25 13:02 70 97 02/08/25 13:00 66 16 110/64 02/08/25 12:57 73 98 02/08/25 12:55 78 115/68 02/08/25 12:53 66 120/74 02/08/25 12:52 71 99 02/08/25 12:51 71 114/65 02/08/25 12:49 77 109/63 02/08/25 12:47 18 02/08/25 12:47 18 02/08/25 12:47 99 02/08/25 12:47 85 02/08/25 12:47 81 116/65 02/08/25 12:45 72 108/60 02/08/25 12:43 71 16 107/62 02/08/25 12:42 71 99 02/08/25 12:41 70 16 107/60 02/08/25 12:37 72 100 02/08/25 12:32 83 100 02/08/25 12:27 86 99 02/08/25 12:22 90 99 02/08/25 12:17 80 100 02/08/25 12:15 72 127/78 02/08/25 12:12 69 100 02/08/25 12:07 85 100 02/08/25 12:05 36.7 C 02/08/25 12:02 83 100 02/08/25 11:57 72 99 02/08/25 11:44 85 108/72 02/08/25 11:15 70 110/67 02/08/25 10:44 73 118/76 02/08/25 10:14 82 110/71 02/08/25 09:45 67 115/72 02/08/25 07:50 110 H 126/82 02/08/25 07:41 37.0 C 110 H 16 126/82 Code Status & VTE Plan VTE Prophylaxis Plan VTE Prophylaxis will be ordered: No Resident Activity Tracking Resident Involvement: Resident Care Provided Care Provided: OB Delivery"
[2025-02-08] MEDS ORDERED: NURSING L&D Epidural Breakthrough Pain Update ONE (13:58)
[2025-02-08] MEDS ORDERED: ROPIVACAINE 0.5% 5 MG/ML 30 ML VIAL ONE (14:25)
[2025-02-08] MEDS ORDERED: LIDOCAINE 2%/EPINEPHRINE 1:200,000 20 ML PF ONE (14:25)
--- NOTE | 2025-02-08 15:20 | Delivery Summary ---
Vaginal Delivery Summary Date of Service February 08, 2025 Vaginal Delivery Summary DIAGNOSES: 1. Heller intrauterine at 40w3d gestation. 2. Induction of Labor. 3. Group B Streptococcus Neg. PROCEDURE: Spontaneous vaginal delivery and repair of second degree laceration. SURGEON: La Fox MD. FACE CLEANER: None. ESTIMATED BLOOD LOSS: 152 mL. COMPLICATIONS: None. PLACENTA: Spontaneous and intact with a 3-vessel cord. DISPOSITION: Stable to labor and delivery. DESCRIPTION: The patient pushed well and brought the head to in DOA position. The 's head was allowed to deliver with contraction force and no further active pushing, with the perineum protected during this time. There was one loose nuchal cord. The left shoulder was anterior. The shoulders and body delivered without any difficulty, and the infant was placed on the maternal abdomen. It was vigorous and moving all extremities, and making respiratory efforts. The cord was doubly clamped by the MD and then cut by the FOB. The placenta delivered spontaneously and was noted to be intact and with a 3VC. The cervix, vagina and perineum were examined and were found to have a second degree laceration which was repaired in the usual manner with vicryl suture including a crown stitch to rebuild the perineal body.. The fundus was firm and lochia minimal immediately after delivery. [facility] Vaginal Delivery Charge Vaginal Delivery Codes: 52691 global code for the antepartum, delivery, and post-
[2025-02-08] MEDS ORDERED: oxyCODONE/ACETAMINOPHEN 5mg/325mg TAB PO PRN (15:23)
[2025-02-08] MEDS ORDERED: bisacodyL 10 MG SUPP PR PRN (15:23)
[2025-02-08] MEDS ORDERED: HYDROCORTISONE ACETATE 25 MG SUPP PR PRN (15:23)
[2025-02-08] MEDS ORDERED: DIPHTHER/TETAN/PERTUS Vaccine (Tdap, Adol/Adult) 0.5mL IM ONE (15:23)
[2025-02-08] MEDS ORDERED: ONDANSETRON INJ 2 MG/ML 2 ML VIAL IV STA (16:29)
[2025-02-08] MEDS: BENZOCAINE 20% SPRY 85 APPLN/85 GM CAN EXT PRN (16:34)
[2025-02-08 19:27] VITALS: O2SAT 99
[2025-02-08] MEDS: DOCUSATE SODIUM 100 MG CAP PO SCH (20:59)
[2025-02-08] MEDS: IBUPROFEN 600 MG TAB PO PRN (20:59)
--- NOTE | 2025-02-09 06:12 | Obstetrical Progress Note ---
Date of Service February 09, 2025 Assessment & Plan (1) state: (2) Perineal laceration during delivery: Plan Mary is a 34yo day 1 s/p uncomplicated with 2nd deg perineal lac. Feels well today, VSS Continue care Encourage ambulation and Pain control with ibuprofen as needed Hgb: 11.7 -> 11.2, asymptomatic Home today if she and baby remain stable Follow up with Dr. Fox in 6wks Admission and Anticipated Discharge Date Admission Date: February 08, 2025 Supervising Physician Co-Signing Physician Notes Resident Physician Supervision Note: I interviewed and examined the patient. Discussed with Dr. Scott and agree with findings and plan as documented in the note. Any exceptions or clarifications are listed here: [ ] Documented By: La Fxo MD, FACOG Subjective Mary is a 34yo day 1 s/p uncomplicated with 2nd deg perineal lac. Feeling: very good Ambulation: yes Void: urinating and passing gas, no BM yet Lochia: steady but small Diet: tolerating Feeding: , no concerns at this time Sx: denies Physical Exam Physical Exam: Constitutional: WD/WN, vitals as above GI/abd: +BS, abdomen soft, fundus firm palpable 2fw+ of umbilicus and R of midline, nontender to palpation LE: no significant swelling, calves nontender to palpation b/l Psychiatric: A&Ox3, euthymic Results & Data Vital Signs (Past 12 Hours) Vital Signs Temp Pulse Resp BP Pulse Ox O2 Del Method 02/09/25 04:30 36.5 C 65 16 109/70 99 Room Air 02/08/25 23:27 36.7 C 52 L 16 117/69 99 Room Air 02/08/25 19:26 36.7 C 76 16 127/86 99 Room Air Resident Activity Tracking Resident Involvement: Resident Care Provided Care Provided: OB Delivery (2) Perineal laceration during delivery Perineal laceration degree: second degree Qualified Code(s): O70.1 - Second degree perineal laceration during delivery
[2025-02-09 06:37] LABS: Hematocrit (blood only) 33.6 % (37.0-47.0); Hemoglobin 11.2 g/dl (12.0-16.0); Mean Corpuscular Hgb Conc 33.3 g/dL (32.0-36.0); Mean Corpuscular Volume 93.1 fL (80.0-100.0); Mean Platelet Volume 10.8 fL (9.4-12.4); Platelet Count 150 K/uL (130-400); RDW Standard Deviation 47.9 fL (36.4-46.3); Red Blood Count 3.61 M/uL (4.20-5.40); White Blood Count 14.76 K/ul (4.8-10.8)
[2025-02-09] MEDS: PRENATAL VITAMIN 1 TAB PO SCH (07:31)
[2025-02-09 17:55] VITALS: BP 116/71; PULSE 76; RESP 19; TEMP 97.9
[2025-02-09] MEDS ORDERED: bisacodyL 5 MG TABEC PO SCH (20:00)
== END 2025-02-09 17:40 | disposition home or self-care (01) | DRG 807 ==
LOC: 4S1 07:27 → 4E2 19:22